=== PATIENT | male | born 1975 | race Caucasian/White ===

== ENCOUNTER 2022-01-10 02:35 | Emergency (ER) | payer OTHER ==
[2022-01-10] MEDS ORDERED: ACETAMINOPHEN 325 MG TABLET (FP) PO ONE (02:42)
[2022-01-10 02:53] VITALS: BP 160/92; PULSE 88; TEMP 98.1; BMI 45.0
[2022-01-10] MEDS ORDERED: ACETAMINOPHEN 325 MG TABLET (FP) ONE (02:54)
== END 2022-01-10 04:48 | disposition home or self-care (01) ==
LOC: JER 02:35
DX: S99.911A Unspecified injury of right ankle, initial encounter (principal); W00.0XXA Fall on same level due to ice and snow, initial encounter
CPT/HCPCS: 73610-TC-RT-FY; 73630-TC-RT-FY; 99283-25

== ENCOUNTER 2022-01-23 20:42 | Emergency (ER) | payer OTHER ==
[2022-01-23 20:59] VITALS: TEMP 98.7; BMI 46.8
[2022-01-23 21:57] LABS: INR 0.97 (0.83-1.09); PROTHROMBIN TIME (PATIENT) 11.2 SEC (9.7-13.0)
[2022-01-23 22:06] LABS: EPITHELIAL CELLS RARE /hpf
[2022-01-23 22:07] LABS: ALBUMIN 3.8 g/dl (3.4-5.0); BILIRUBIN,TOTAL 0.6 mg/dl (0.2-1); CALCIUM 9.4 mg/dl (8.5-10); CREATININE 0.9 mg/dl (0.55-1.3); TOT PROT 7.5 g/dl (6.4-8.2)
[2022-01-23 22:34] LABS: BASO % 0.8 % (0-2.0); EOS % 2.7 % (0-4.5); HEMATOCRIT 41.6 % (35.4-49); HEMOGLOBIN 14.2 GM/dL (11.7-16.9); LYMPH % 39.5 % (8-40); MCH 28.7 pg (25.7-33.7); MCHC 34.2 g/dl (32.0-35.9); MEAN PLT VOLUME 7.3 fl (7.5-11.1); MONO % 13.1 % (3.8-10.2); NEUT % 43.9 % (42.8-82.8); PLATELET COUNT 289 10^3/uL (134-434); RBC 4.95 M/mm3 (4.00-5.60); RDW 14.4 % (11.9-15.9); WHITE BLOOD COUNT 8.2 K/mm3 (4.0-10.0)
[2022-01-23] MEDS ORDERED: SODIUM CHLORIDE 1,000 ML IV STA (23:50)
[2022-01-24] MEDS ORDERED: ENOXAPARIN NA (PORCINE) 100 MG/1 ML DISP.SYRIN SQ ONE (00:19)
[2022-01-24] MEDS ORDERED: ENOXAPARIN NA (PORCINE) 60 MG/0.6 ML DISP.SYRIN SQ ONE (00:19)
[2022-01-24 00:30] VITALS: BP 129/62; PULSE 74
[2022-01-24] MEDS ORDERED: ENOXAPARIN NA (PORCINE) 120 MG/0.8 ML DISP.SYRIN SQ SCH (00:30)
== END 2022-01-24 00:48 | disposition home or self-care (01) ==
LOC: FER 20:42
PROC: 3E023GC Introduction of Other Therapeutic Substance into Muscle, Percutaneous Approach (ICD-10-PCS; principal; 2022-01-23)
PROC: 3E0337Z Introduction of Electrolytic and Water Balance Substance into Peripheral Vein, Percutaneous Approach (ICD-10-PCS; principal; 2022-01-23)
DX: I82.4Z1 Acute embolism and thrombosis of unspecified deep veins of right distal lower extremity (principal)
CPT/HCPCS: 36415; 74177-TC; 80053; 81003; 81015; 85025; 85610; 93971-TC; 99285-25; C9803-CS; Q9967; U0003; U0005